=== PATIENT | female | born 1985 | race Caucasian/White ===

== ENCOUNTER 2017-05-21 11:18 | Emergency (ER) | payer MEDICAID, OTHER ==
[~2017-05-21] VITALS: Ht 167.6 cm; Wt 91.8 kg
[~2017-05-21 11:18] MED LIST: IBUP-1542 PO
[2017-05-21 11:25] VITALS: Ht 167.6 cm; Wt 91.8 kg
[2017-05-21] MEDS ORDERED: ONDANSETRON (ODT) 4 MG TAB ODT STA (12:17)
--- NOTE | 2017-05-21 12:26 | ERD ---
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 HPI 31-year-old female who is currently breast-feeding her 1-year-old who is coming in with left breast pain for 2 weeks and redness starting today. She states she has had achy pain on the upper portion of her breast for approximately 2 weeks and then starting last night it became more painful and she has noticed some swelling with redness. She is reports she has myalgias but no fevers or chills. ROS All systems reviewed and are negative except as per history of present illness. Medications Home Meds Active Scripts Sulfamethoxazole/Trimethoprim* (Bactrim Ds* Tablet) 1 Each Tablet, 1 TAB PO BID , #14 TAB Prov:SANDRA PHIPPS PA-C 05/21/17 Ibuprofen* (Motrin*) 600 Mg Tab, 600 MG PO Q6, #30 TAB Prov:SANDRA PHIPPS PA-C 05/21/17 Cephalexin* (Keflex*) 500 Mg Capsule, 500 MG PO QID for 7 Days, CAP Prov:SANDRA PHIPPS PA-C 05/21/17 Ibuprofen* (Ibuprofen*) 600 Mg Tablet, 600 MG PO Q6, #20 TAB 0 Refills Prov:BRITTANY SHAY MD 03/05/16 Allergies Allergies: Coded Allergies: No Known Allergies (Verified Allergy, Unknown, 03/03/16) PMhx/Soc Medical and Surgical Hx: pt denies Medical Hx History of Surgery: Yes (Cholecystectomy) Hx Alcohol Use: No Hx Substance Use: No Hx Tobacco Use: No Physical Exam Vitals Vital Signs Date Time Temp Pulse Resp B/P Pulse Ox O2 Delivery O2 Flow Rate FiO2 05/21/17 11:25 98.7 91 18 134/75 98 Physical Exam General: Well-developed, well-nourished. The patient appears in no acute distress. HEENT: Head is normocephalic, atraumatic. No scleral icterus. Neck: Supple. Nontender. Lungs: Clear to auscultation. Normal air movement. Left breast: 10 o'clock position is an area of induration erythema, warmth, tender to palpation, no masses. Heart: Regular rate and rhythm. S1 and S2 are normal. No murmurs, gallops, or rubs. Abdomen: Soft, nontender, nondistended. Bowel sounds are normoactive. Extremities: No clubbing or cyanosis. Normal pulses. Moving extremities x 4. No weakness. Neurologic: Alert and oriented 3. No focal deficits. Skin: Normal turgor. No rash or lesions. Results 24 hrs Current Medications Medications (Trade) Dose Ordered Sig/Mandie Route PRN Reason Start Time Stop Time Status Last Admin Dose Admin Ibuprofen (Motrin) 600 mg ONCE ONCE PO 05/21/17 12:30 05/21/17 12:31 DC 05/21/17 13:08 Acetaminophen/ Hydrocodone Bitart ([place] ()) 1 tab ONCE ONCE PO 05/21/17 12:30 05/21/17 12:31 DC 05/21/17 13:08 Ondansetron HCl (Zofran Odt) 4 mg ONCE STAT ODT 05/21/17 12:17 05/21/17 12:20 DC 05/21/17 13:08 DIAGNOSTIC IMAGING REPORT Patient: VIRI DIETRICH : 1985 Age: 31 Sex: F MR #: [id number] DOS: 05/21/17 0000 Ordering MD: SANDRA PHIPPS PA-C Location: [facility] Room/Bed: PROCEDURE: Left breast ultrasound. CLINICAL INDICATION: Left breast pain at the 10 o'clock position. TECHNIQUE: High-resolution sonography of the left breast was performed in the axial and sagittal planes. COMPARISON: No prior study is available for comparison. FINDINGS: There is no cystic or solid mass. Normal breast parenchyma is present. There is no abnormality in the 10 o'clock position of the left breast. IMPRESSION: 1. Normal left breast ultrasound. 2. Any further management regarding any breast symptoms should be based upon clinical grounds. RPTAT: QQ .Nickolas Fernandes MD, Date Time Electronically viewed and signed by .Nickolas Fernandes MD, on 05/21/2017 14:47 .R/ CC: SANDRA PHIPPS PA-C Procedures/MDM 31-year-old female comes in with a left-sided breast pain at the 10 o'clock position for approximately 2 weeks, and began having redness and swelling to this area for the past day. The patient's breast ultrasound shows no evidence of any masses, or abscess. The patient will be treated for cellulitis versus mastitis given that she is breast-feeding and will be given Keflex Bactrim and ibuprofen. She is to recheck this area in 1-2 days. Departure Diagnosis: Primary Impression: Breast pain Condition: SANDRA Shaver PA-C May 21, 2017 12:26
[2017-05-21] MEDS ORDERED: HYDROCODONE/APAP (10/325) TAB PO ONE (12:30)
[2017-05-21] MEDS ORDERED: IBUPROFEN 600 MG TAB PO ONE (12:30)
--- NOTE | 2017-05-21 14:47 | RADRPT ---
PROCEDURE: Left breast ultrasound. CLINICAL INDICATION: Left breast pain at the 10 o'clock position. TECHNIQUE: High-resolution sonography of the left breast was performed in the axial and sagittal p lanes. COMPARISON: No prior study is available for comparison. FINDINGS: There is no cystic or solid mass. Normal breast parenchyma is present. There is no abnormality in t he 10 o'clock position of the left breast. IMPRESSION: 1. Normal left breast ultrasound. 2. Any further management regarding any breast symptoms should be based upon clinical grounds. RPTAT: QQ .Nickolas Fernandes MD, MD Date Time Electronically viewed and signed by .Nickolas Fernandes MD, MD on 05/21/2017 14:47 .R/
[2017-05-21] MEDS ORDERED: SULF1TAB31 PO (15:01)
[2017-05-21] MEDS ORDERED: IBUP-1542 PO (15:01)
[2017-05-21] MEDS ORDERED: CEPH-443 PO (15:01)
[2017-05-21 15:32] VITALS: BP 132/71; PULSE 68; RESP 18; TEMP 98.7
== END 2017-05-21 15:25 | disposition home or self-care (01) ==
LOC: FTE 11:18
DX: N64.4 Mastodynia (principal)
CPT/HCPCS: 76642; Z7502; Z7610